=== PATIENT | female | born 1960 | race Caucasian/White ===

== ENCOUNTER → 2016-11-22 | Day surgery (SDC) | payer OTHER ==
--- NOTE | 2016-11-21 16:53 | History & Physical Pre-Op ---
General Information and HPI History of Present Illness: Melvina is a 55-year-old female with a long-standing and worsening complaint of a painful left heel. The patient has undergone an extended course of conservative care, including shoe gear and activity modification, rest, immobilization and courses of NSAIDs. None of this is yielded her any significant relief. The patient presents today for preoperative surgical consultation. Patient was referred to our office from Javid Agustin DPM. Allergies/Medications Allergies: Coded Allergies: adhesive (Intermediate, RASH 11/16/16) Home Med list Atorvastatin Calcium (Lipitor) 20 MG TABLET 1 TAB PO DAILY CHOLESTEROL ( Reported) Levothyroxine Sodium 88 MCG TABLET 1 TAB PO DAILY THYROID (Reported) Past History Medical History Cardiovascular: hyperlipidemia Endocrine: hypothyroidism Surgical History Pertinent Surgical History: Review of Systems Review of Systems: Unremarkable except for that noted in history of present illness Exam & Diagnostic Data Physical Exam: Lungs clear bilaterally. Heart sounds rate and rhythm regular. Lower 70 physical exam demonstrates intact pedal pulses bilaterally. Both dorsalis pedis and posterior tibial arteries are palpable bilaterally bilaterally. Without any sensory motor deficits. Deep tendon reflexes grossly intact. Negative Tinel sign noted with percussion the posterior tibial nerve bilaterally. Patient noted to have significant pain with palpation to the plantar medial aspect the left heel. Ankle range of motion noted to be diminished, especially in dorsiflexion. Assessment/Plan Assessment/Plan: Gastrocnemius equinus and chronic plantar fasciitis his left. A lengthy discussion reviewing both surgical and conservative options held the patient at bedside and the patient elects to go forward surgery despite the risks. As Ranked By This Provider Problem List: 1. Plantar fascial fibromatosis Attending MD Review Statement Attending Statement Attending MD Statement: examined this patient
[~2016-11-22] VITALS: Ht 157.5 cm; Wt 81.6 kg
[~2016-11-22] MED LIST: LEVOTHYROXINE88 MCG PO; LIPITOR20 M2 PO
--- NOTE | 2016-11-22 10:26 | Operative Report ---
Operative/Inv Procedure Report Surgery Date: 11/22/16 Name of Procedure: 1 gastrocnemius recession left 2 plantar fasciectomy left 3 plantar fasciotomy left 4 intraoperative administration of ankle block anesthesia Pre-Operative Diagnosis: 1 gastrocnemius equinus left 2 chronic plantar fasciosis left Post-Operative Diagnosis: The same Estimated Blood Loss: scant Surgeon/Community Marketing Coordinator: LIZZETH BERNAL DPM Anesthesia: moderate sedation, block Operative/Procedure Note Note: After obtaining informed consent the patient was brought to the operating room and placed on the operating table in the supine position. The patient was then securely fastened to the operating table utilizing safety belt. After administration of IV sedation, 10 mL of 0.5% Marcaine plain was infiltrated about the patient's left ankle and leg. A well-padded calf tourniquet was placed about the patient's left upper calf. 2 g of Ancef were delivered intravenously times one dose. The left foot ankle and lower extremity within scrubbed prepped and draped in the usual aseptic manner. Left lower extremity was elevated to examine to limb, which point the calf tourniquet was inflated 250 mmHg. Attention was directed to the distal left leg, where a linear incision was made 2 fingerbreadths distal to the medial head of the gastrocnemius muscle. The dissection was then carried down to the medial margin of the gastroc fascia, where the peritenon was incised and reflected. An interval was developed between the peritenon and fascia. The sural nerve was identified protected. A gastrocnemius recession was then performed. The deep tissues reapproximated 4-0 Vicryl and the skin edges reprepped with 4-0 nylon. Attention was then directed to the distal medial foot, where a grid pattern was marked out overlying the region of the origin of the medial slip of the plantar fascia. Portals were developed with a sterile 62 K wire at half centimeter intervals and the tissue was then ablated with the Holcombe device delivering 4 W of radiofrequency energy. The dissection was then carried out to the medial margin of the plantar fascia which was released from its origin on the medial tubercle calcaneal tuberosity. The deep tissues and reapproximated 4-0 Vicryl and the skin edges reapproximated 4-0 nylon. The incisions were dressed with Xeroform 4 x 4's Kerlix and Jose wrap. The patient was noted to tolerate both procedure and anesthesia well and the patient was transported from the operating room to recovery with vital signs stable best assess intact to all digits left foot.
== END ==
LOC: STS 06:58
DX: M21.6X2 Other acquired deformities of left foot (principal); M72.2 Plantar fascial fibromatosis; E03.9 Hypothyroidism, unspecified
CPT/HCPCS: J0690; J2250